=== PATIENT | male | born 1980 | race Caucasian/White ===

== ENCOUNTER → 2018-12-16 | Emergency (ER) | payer OTHER ==
[~2018-12-16] VITALS: Ht 180.3 cm; Wt 95.3 kg
[~2018-12-16] MED LIST: IBUPROFEN 800800 MG PO; TRAMADOL 50 MG50 MG PO; ZOFRAN ODT4 MG PO
[2018-12-16 22:37] VITALS: BP 138/83
== END ==
LOC: M.ERS 21:22
DX: S06.899A Other specified intracranial injury with loss of consciousness of unspecified duration, initial encounter (principal); W51.XXXA Accidental striking against or bumped into by another person, initial encounter; Y93.72 Activity, wrestling; Y92.89 Other specified places as the place of occurrence of the external cause; Y99.8 Other external cause status

== ENCOUNTER 2019-12-13 00:36 | Emergency (ER) | payer OTHER ==
[~2019-12-13] VITALS: Ht 177.8 cm; Wt 93.0 kg
[2019-12-13 01:17] LABS: HEMATOCRIT 42.9 % (42.0-52.0); HEMOGLOBIN 14.6 gm/dL (14.0-18.0); MCH 28.3 pg (26.0-34.0); MCHC 34.1 g/dL (28.0-37.0); MPV 8.7 fl. (7.2-11.1); NUCLEATED RBCS 0 /100WBC; PLATELET COUNT* 197 thou/uL (150-400); RBC 5.17 mil/uL (4.50-6.00); RDW-CV 13.6 % (10.5-14.5); WBC 8.2 thou/uL (4.0-11.0)
[2019-12-13 01:22] LABS: CALCIUM 7.7 mg/dL (8.5-10.1); CREATININE 1.3 mg/dL (0.6-1.3); POTASSIUM 3.7 mmol/L (3.5-5.1)
[2019-12-13 01:26] LABS: TOTAL BILIRUBIN 1.4 mg/dL (<0.1-1.0); TOTAL PROTEIN 7.4 g/dL (6.4-8.2)
[2019-12-13 01:38] LABS: INFLUENZA A ANTIGEN Negative (Negative); INFLUENZA B ANTIGEN Negative (Negative)
[2019-12-13 01:38] LABS: URINE BILIRUBIN NEGATIVE (Negative); URINE BLOOD NEGATIVE (Negative); URINE CLARITY CLEAR; URINE COLOR YELLOW; URINE GLUCOSE-RANDOM NEGATIVE (Negative); URINE KETONES NEGATIVE (Negative); URINE LEUKOCYTES-REFLEX NEGATIVE (Negative); URINE NITRITE-REFLEX NEGATIVE (Negative); URINE PROTEIN NEGATIVE (Negative); URINE SPECIFIC GRAVITY >= 1.030 (1.005-1.030); URINE UROBILINOGEN 0.2 E.U./dl (0.2-1.0)
[2019-12-13] MEDS ORDERED: ZOFRAN ODT4 MG PO (02:22)
[2019-12-13 02:26] LABS: ABSOLUTE LYMPHOCYTES 0.2 thou/uL (0.8-5.3); ABSOLUTE MONOCYTES 0.2 thou/uL (0.0-1.2); ABSOLUTE NEUTROPHILS 7.8 thou/uL (1.6-8.1); PLATELET ESTIMATE ADEQUATE; TOXIC GRANULATION 1+
[2019-12-13 02:46] VITALS: BP 117/67
== END 2019-12-13 02:48 | disposition home or self-care (01) ==
LOC: M.ERS 00:36
PROVIDERS: Emergency Medicine
DX: K52.9 Noninfective gastroenteritis and colitis, unspecified (principal)